=== PATIENT | male | born 1980 | race Caucasian/White ===

== ENCOUNTER 2019-10-05 18:04 | Emergency (ER) | payer MEDICAID ==
--- NOTE | 2019-10-05 18:14 | EDM.PDOC ---
ED HPI GENERAL MEDICAL PROBLEM - General Stated Complaint: EMS states they were called to an apartment building secondary to a person possibly unresponsive or passed out upon arrival the patient was up and moving states he had been drinking since about 11:00 went to visit a friend and fell asleep on the apartment floor he has no complaints at this time states he feels fine and wants to go home Time Seen by Provider: 10/05/19 18:05 Source of Information: Reports: Patient, EMS History Limitations: Reports: No Limitations - History of Present Illness INITIAL COMMENTS - FREE TEXT/NARRATIVE: Patient states he drinks 2-3 beers a day he went to the bar at 11:00 today had some drinks she is unsure of how much left about 5:00 he has no medical problems or no medical complaints at this time does not take any medications Onset: Sudden ED ROS GENERAL - Review of Systems Review Of Systems: See Below Constitutional: Reports: No Symptoms HEENT: Reports: No Symptoms Respiratory: Reports: No Symptoms Cardiovascular: Reports: No Symptoms Endocrine: Reports: No Symptoms GI/Abdominal: Reports: No Symptoms : Reports: No Symptoms Musculoskeletal: Reports: No Symptoms Skin: Reports: No Symptoms Neurological: Reports: No Symptoms Psychiatric: Reports: No Symptoms Hematologic/Lymphatic: Reports: No Symptoms Immunologic: Reports: No Symptoms ED EXAM, GENERAL - Physical Exam Exam: See Below Exam Limited By: No Limitations General Appearance: Alert, WD/WN, No Apparent Distress Eye Exam: Bilateral Eye: EOMI, Normal Inspection Ears: Normal External Exam, Normal Canal, Hearing Grossly Normal, Normal TMs Nose: Normal Inspection, Normal Mucosa, No Blood Throat/Mouth: Normal Inspection, Normal Lips, Normal Teeth, Normal Gums, Normal Oropharynx, Normal Voice, No Airway Compromise Head: Atraumatic, Normocephalic Neck: Normal Inspection, Supple, Non-Tender, Full Range of Motion Respiratory/Chest: No Respiratory Distress, Lungs Clear, Normal Breath Sounds, No Accessory Muscle Use, Chest Non-Tender Cardiovascular: Regular Rate, Rhythm, No Edema, No Gallop, No JVD GI/Abdominal: Normal Bowel Sounds, Soft, Non-Tender, No Organomegaly, No Distention Extremities: Normal Inspection, Normal Range of Motion, Non-Tender Neurological: Alert, Oriented, CN II-XII Intact, Normal Cognition, Normal Gait, No Motor/Sensory Deficits, Other (Patient is alert and oriented x4 carries normal conversation gives logical responses follows all commands and answers all questions appropriately) Psychiatric: Normal Affect, Normal Mood Skin Exam: Warm, Dry, Intact, Normal Color, No Rash Departure - Departure Time of Disposition: 18:25 Disposition: Home, Self-Care 01 Condition: Good Clinical Impression: Alcohol abuse - Discharge Information *PRESCRIPTION DRUG MONITORING PROGRAM REVIEWED*: No *COPY OF PRESCRIPTION DRUG MONITORING REPORT IN PATIENT CRYSTAL: No - Problem List & Annotations (1) Alcohol abuse SNOMED Code(s): 46629366 Code(s): F10.10 - ALCOHOL ABUSE, UNCOMPLICATED Status: Acute
[2019-10-05 18:32] VITALS: BP 128/72; PULSE 92
== END 2019-10-05 18:18 | disposition home or self-care (01) ==
LOC: VM.ED 18:04
DX: F10.10 Alcohol abuse, uncomplicated (principal)
CPT/HCPCS: 99283-GF; 99284